=== PATIENT | male | born 1955 | race Caucasian/White ===

== ENCOUNTER 2019-11-02 13:07 | Emergency (ER) | payer OTHER, MEDICARE ==
--- OUTSIDE RECORDS SUMMARY | 2019-11-02 13:40 | XMS REPORT | Continuity of Care Document ---
:1955 External Reference #:[id number] Author Name Winston Cardona M.D. Address [address] [place] [address] Care Team Providers Name Role Phone Damian Kaufman M.D. - Family Care Team Information Senior Unix Administrator [phone] Medicine Tab Arenas O.D. - [employer] Supervisor Care Team Information Senior Unix Administrator Problems Active Problems Provider Date Third [oculomotor] nerve palsy, left eye Winston Cardona M.D. Onset: 2018 Social History Type Date Description Comments Sex Unknown ETOH Use Occasionally consumes alcohol Tobacco Use Start: Unknown Patient has never smoked Smoking Status Reviewed: 11/02/19 Patient has never smoked Allergies, Adverse Reactions, Alerts Description No Known Drug Allergies Medications Description No Active Medications Immunizations Description No Information Available Vital Signs Description No Information Available Results Description No Information Available Procedures Description No Information Available Medical Devices Description No Information Available Encounters Description No Information Available Assessments Date Code Description Provider 11/02/2019 H49.02 Third [oculomotor] nerve palsy, left eye Winston Cardona M.D. Plan of Treatment 11/02/2019 - Winston Cardona M.D.H49.02 Third [oculomotor] nerve palsy, left eyeComments:Smoking can increase the risk of developing or worsening any eye related disease, as well as affect your overall health. If you are a smoker, we strongly recommend that you quit.If you are not a smoker, we strongly recommend that you do not start. BASED UPON YOUR PARTIAL THIRD NERVE PALSY ON THE LEFT SIDE, I RECOMMEND YOU GO TO THE EMERGENCY DEPARTMENT TO BE EVALUATED ( TESTING RECOMMENDED TO BE DONE IS A CT ANGIOGRAM BRAIN AND BLOOD WORK OF ESR/ CRP TO EVALUATE FOR GIANT CELL ARTERITIS) Functional Status Description No Information Available Mental Status Description No Information Available Referrals Description No Information Available
[2019-11-02 13:43] LABS: ABS Eosinophils 0.2 10^3/ul (0-0.6); ABS Lymphocytes 2.9 10^3/ul (1.0-4.8); ABS Monocytes 0.9 10^3/ul (0-0.8); ABS Neutrophils 3.6 10^3/ul (1.5-7.7); Eosinophil % 2.1 %; Hematocrit 49 % (42-52); Hemoglobin 16.9 g/dL (14.0-18.0); Lymphocyte % 38.2 %; Mean Corpuscular HGB Conc 35 g/dL (31-36); Mean Corpuscular Hemoglobin 30 pg (27-31); Mean Corpuscular Volume 88 fL (80-94); Mean Platelet Volume 8.3 fL (7.4-10.4); Nucleated Red Blood Cells % 0.2; Platelet Count 196 10^3/uL (150-450); Red Blood Count 5.57 10^6 /uL (4.18-5.48); Red Cell Distribution Width 13 % (10-15); White Blood Count 7.5 10^3/uL (3.5-10.8)
[2019-11-02 13:49] LABS: INR 1.01 (0.82-1.09)
[2019-11-02 13:59] LABS: Albumin 4.4 g/dL (3.2-5.2); Albumin/Globulin Ratio 1.4 (1-3); BUN/Creatinine Ratio 18.4 (8-20); EGFR Non-African American 64.5 (>60); Globulin 3.1 g/dL (2-4); Potassium 4.4 mmol/L (3.5-5.0); Total Bilirubin 0.7 mg/dL (0.2-1.0); Total Protein 7.5 g/dL (6.4-8.9)
[2019-11-02] MEDS ORDERED: Iohexol 350* (CONTRAST) 500 ML MDV IV ONE (16:28)
[2019-11-02] MEDS ORDERED: Gadoteridol* (CONTRAST) 279.3 MG/ML 10 ML IV ONE (16:49)
--- NOTE | 2019-11-02 17:28 | ED ---
Neurological HPI - HPI Summary HPI Summary: This patient is a 64-year-old otherwise healthy male with a past medical history of enlarged prostate presents to the ED with blurry and double vision. He states on Thursday evening, 2 days ago, he developed left eye double vision accompanied with the eye unable to focus. States his eye physically moved to the lateral side. He states when covering up the right eye and only seeing with the left eye, he is off balance and unable to ambulate. When covering of the left eye, he states he has perfect vision to the right eye. He was sent in by his gym teacher, Dr. Cardona for stroke w/u. Patient does not have a history of diabetes, TIA or atherosclerotic disease. He states his never happened to him before. He denies any headache, sensory changes, confusion, memory loss or slurred speech. He continues to be able to ambulate without gait disturbance. He denies any weakness. Denies any other focal deficits. - History of Current Complaint Chief Complaint: EDNeurologicalDeficit Stated Complaint: DOUBLE VISION SENT BY EYE Time Seen by Provider: 11/02/19 16:05 Hx Obtained From: Patient Onset/Duration: Sudden Onset - 2 days ago Timing: Constant Onset Severity: Moderate Current Severity: Moderate Pain Intensity: 0 - Allergy/Home Medications Allergies/Adverse Reactions: Allergies Allergy/AdvReac Type Severity Reaction Status Date / Time No Known Allergies Allergy Verified 11/02/19 13:18 PMH/Surg Hx/FS Hx/Imm Hx Previously Healthy: Yes Endocrine/Hematology History: Denies: Hx Diabetes Cardiovascular History: Denies: Hx Hypertension, Hx Pacemaker/ICD Sensory History: Denies: Hx Hearing Aid Psychiatric History: Denies: Hx Panic Disorder - Surgical History Surgery Procedure, Year, and Place: TONSILS - Immunization History Hx Pertussis Vaccination: No Immunizations Up to Date: Yes Infectious Disease History: No Infectious Disease History: Denies: Traveled Outside the [place] in Last 30 Days - Social History Occupation: Employed Full-time Lives: With Family Alcohol Use: None Hx Substance Use: No Substance Use Type: Reports: None Hx Tobacco Use: No Smoking Status (MU): Never Smoked Tobacco Review of Systems Negative: Fever, Chills, Fatigue, Skin Diaphoresis Positive: Blurred Vision, Diplopia Negative: Dental Pain Negative: Palpitations, Chest Pain Negative: Shortness Of Breath, Cough Genitourinary: Negative Positive: no symptoms reported, see HPI Negative: Bruising Negative: Headache, Weakness, Paresthesia, Numbness, Syncope, Slurred Speech Psychological: Normal All Other Systems Reviewed And Are Negative: Yes Physical Exam Triage Information Reviewed: Yes Vital Signs On Initial Exam: Initial Vitals Temp Pulse Resp BP Pulse Ox 98.4 F 80 16 133/95 98 11/02/19 13:15 11/02/19 13:15 11/02/19 13:15 11/02/19 13:15 11/02/19 13:15 Vital Signs Reviewed: Yes Appearance: Positive: Well-Appearing, Well-Nourished Skin: Positive: Warm, Skin Color Reflects Adequate Perfusion Head/Face: Positive: Normal Head/Face Inspection Eyes: Positive: EOMI, LUIS M, Conjunctiva Clear Neck: Positive: Supple, No Lymphadenopathy Respiratory/Lung Sounds: Positive: Clear to Auscultation, Breath Sounds Present Cardiovascular: Positive: RRR, Pulses are Symmetrical in both Upper and Lower Extremities Musculoskeletal: Positive: Normal, Strength/ROM Intact Psychiatric: Positive: Affect/Mood Appropriate AVPU Assessment: Alert Procedures - Sedation Patient Received Moderate/Deep Sedation with Procedure: No Diagnostics - Vital Signs Vital Signs Temp Pulse Resp BP Pulse Ox 11/02/19 15:24 98.6 F 84 14 145/84 98 11/02/19 13:15 98.4 F 80 16 133/95 98 - Laboratory Lab Results: Lab Results 11/02/19 11/02/19 11/02/19 Range/Units 13:32 13:32 13:32 WBC 7.5 (3.5-10.8) 10^3/uL RBC 5.57 H (4.18-5.48) 10^6 /uL Hgb 16.9 (14.0-18.0) g/dL Hct 49 (42-52) % MCV 88 (80-94) fL MCH 30 (27-31) pg MCHC 35 (31-36) g/dL RDW 13 (10-15) % Plt Count 196 (150-450) 10^3/uL MPV 8.3 (7.4-10.4) fL Neut % (Auto) 47.9 % Lymph % (Auto) 38.2 % Beauregard % (Auto) 11.6 % Eos % (Auto) 2.1 % Baso % (Auto) 0.2 % Absolute Neuts (auto) 3.6 (1.5-7.7) 10^3/ul Absolute Lymphs (auto) 2.9 (1.0-4.8) 10^3/ul Absolute Monos (auto) 0.9 H (0-0.8) 10^3/ul Absolute Eos (auto) 0.2 (0-0.6) 10^3/ul Absolute Basos (auto) 0.0 (0-0.2) 10^3/ul Absolute Nucleated RBC 0.0 10^3/ul Nucleated RBC % 0.2 INR (Anticoag Therapy) 1.01 (0.82-1.09) Sodium 140 (135-145) mmol/L Potassium 4.4 (3.5-5.0) mmol/L Chloride 103 (101-111) mmol/L Carbon Dioxide 31 (22-32) mmol/L Anion Gap 6 (2-11) mmol/L BUN 21 (6-24) mg/dL Creatinine 1.14 (0.67-1.17) mg/dL Est GFR ( Amer) 78.0 (>60) Est GFR (Non-Af Amer) 64.5 (>60) BUN/Creatinine Ratio 18.4 (8-20) Glucose 105 H (70-100) mg/dL Calcium 10.0 (8.6-10.3) mg/dL Total Bilirubin 0.70 (0.2-1.0) mg/dL AST 23 (13-39) U/L ALT 20 (7-52) U/L Alkaline Phosphatase 64 (34-104) U/L Total Protein 7.5 (6.4-8.9) g/dL Albumin 4.4 (3.2-5.2) g/dL Globulin 3.1 (2-4) g/dL Albumin/Globulin Ratio 1.4 (1-3) Result Diagrams: 11/02/19 13:32 11/02/19 13:32 Lab Statement: Any lab studies that have been ordered have been reviewed, and results considered in the medical decision making process. Course/Dx - Course Course Of Treatment: Per Dr. sjai franklin, gym teacher, patient likely has a partial third nerve palsy. On physical examination, patient has assymetry of pupil size, deviation of the L eye outward and downward. Able to open eyelid. Pupil enlarged. Double vision and slight blurry vision. Denies RODRIGES. Discussed with Dr. Jasmine, neurology, recommending CTA head and neck, MRI with without. Awaiting results, patient will be signed out to Rafat Robles PA-C with Dr. Jasmine consult. - Differential Dx Differential Diagnoses Neuro: Positive: Other - brain lesion, local inflammation , migraine, hemorrhage, ischemia, trauma, neoplasm - Diagnoses Provider Diagnoses: Third nerve palsy - Physician Notifications Discussed Care Of Patient With: Cb Jasmine Instructed by Provider To: MD Will See In ED Discharge ED - Sign-Out/Discharge Documenting (check all that apply): Sign-Out Patient Signing out patient TO: Rafat Robles - Discharge Plan Condition: Fair Referrals: Mandeep PUGA,Damian Garcia [Primary Care Provider] - - Billing Disposition and Condition Condition: FAIR
--- NOTE | 2019-11-02 20:02 | PN ---
Progress Note - Progress Note Date of Service: 11/02/19 Note: Patient signed out to me by Afshin FERNÁNDEZ pending results of MRI brain with and without contrast, and CTA head and neck. Brain MRI with and without contrast negative for lesions identified to account for diplopia. No evidence for acute or subacute ischemia. Positive for small burdening of nonspecific T2 hyperintensities within the periventricular and subcortical white matter of the cerebral hemispheres without enhancement or mass effect. Sequela of chronic small vessel ischemic disease is most likely. The differential would include demyelinating lesions in the appropriate clinical context or lesions related to migraine headaches or previous inflammatory foci. CT brain negative. CTA head and neck negative for acute findings. Patient has normal neuro exam except for left eye unable to completely across medially. PERRLA. No temporal pain with palpation. Patient denies pain or any focal deficits other than diplopia in left eye. Discussed patient with Neurologist Dr. Jasmine who states patient, depending on patient preference, can either be admitted with further evaluation in the morning or patient can follow-up with Dr. Jasmine outpatient next couple days. Dr. Jasmine states he will call patient tomorrow morning to arrange follow- up appointment within the next couple days. Patient prefers to be discharged home, and understands that he must return to the ED for any change in symptoms. Dr. Jasmine also recommended starting patient on 81 mg of ASA, to be taken daily until further evaluation by Dr. Jasmine. CRP and ESR as requested by Dr. Jasmine within normal limits. Patient discharged home in stable condition with diagnosis of third nerve palsy.
[2019-11-02] MEDS ORDERED: Aspirin 81 mg CHEW TAB* 81 MG TAB.CHEW PO ONE (20:13)
[2019-11-02 20:34] LABS: C Reactive Protein 14.6 mg/L (<8.01)
[2019-11-02 21:27] LABS: Erythrocyte Sed Rate 9 mm/Hr (0-19)
[2019-11-02 21:52] VITALS: BP 142/89
== END 2019-11-02 21:45 | disposition home or self-care (01) ==
LOC: ED 13:07
DX: H49.02 Third [oculomotor] nerve palsy, left eye (principal); H53.8 Other visual disturbances; Z87.430 Personal history of prostatic dysplasia
CPT/HCPCS: 36415; 70450; 70496; 70498; 70553; 80053; 85025; 85610; 85652; 86140; 99283; A9270-GY; A9579; Q9967